=== PATIENT | female | born 1975 | race Asian ===

== ENCOUNTER 2024-05-22 21:30 | Emergency (ER) | payer OTHER ==
[~2024-05-22] VITALS: Ht 144.8 cm; Wt 56.8 kg
[2024-05-22 21:36] VITALS: TEMP 98
[2024-05-22] MEDS: DiphenhydrAMINE HCL 50 MG/ML VIAL IM ONE (22:17)
[2024-05-22] MEDS: PredniSONE 20 MG TABLET PO ONE (22:17)
[2024-05-22] MEDS: EPINEPHrine 1:1,000 [1 MG/ML] VIAL SQ ONE (22:18)
[2024-05-22] MEDS ORDERED: PRED-554 PO (22:41)
[2024-05-22] MEDS ORDERED: DIPH50CA37 PO (22:41)
[2024-05-22] MEDS ORDERED: LORA10TA7 PO (22:59)
[2024-05-22 23:00] VITALS: BP 146/88; PULSE 75; RESP 16
== END 2024-05-22 23:14 | disposition home or self-care (01) ==
LOC: EMS 21:30
DX: L50.9 Urticaria, unspecified (principal); T78.1XXA Other adverse food reactions, not elsewhere classified, initial encounter; X58.XXXA Exposure to other specified factors, initial encounter
CPT/HCPCS: 99284; 96372; J1200; J0171; J7512